=== PATIENT | male | born 1965 | race Caucasian/White ===

== ENCOUNTER 2024-09-11 05:40 | Emergency (ER) | payer OTHER ==
[2024-09-11] MEDS ORDERED: Ketorolac Tromethamine 30 MG (1 mL) VIAL ONE (06:00)
[2024-09-11] MEDS ORDERED: Ondansetron ODT 4 MG TAB ONE (06:12)
[2024-09-11 06:30] LABS: Bilirubin Neg (Negative); Blood, Urine 25 (Negative); Clarity Clear (Clear); Glucose, Urine (Dipstick) 50 mg/dL (Negative); Ketone, Urine Negative (Negative); Leukocyte Negative (Negative); Nitrite Negative (Negative); Protein, Urine (Dipstick) Negative (Neg-Trace); Urobilinogen Normal mg/dL (Less than 2)
[2024-09-11 06:49] LABS: Bacteria/HPF Rare-Few HPF (None Seen); CAUTI Indications for Culture Pelvic or flank pain; Squamous Epithelial 0-3 HPF (0-3); WBC/HPF 0-3 HPF (0-3)
[2024-09-11 06:50] LABS: Urine Culture Reflex No No
== END 2024-09-11 07:58 | disposition home or self-care (01) ==
LOC: CSHERS 05:40
DX: N20.0 Calculus of kidney (principal); I10 Essential (primary) hypertension; E78.5 Hyperlipidemia, unspecified; Z79.899 Other long term (current) drug therapy
CPT/HCPCS: 74176; 81001; 96372; J1885; Q0162

== ENCOUNTER 2024-09-13 22:34 | Emergency (ER) | payer OTHER ==
[2024-09-13] MEDS ORDERED: Ketorolac Tromethamine 30 MG (1 mL) VIAL ONE (23:12)
== END 2024-09-14 00:10 | disposition home or self-care (01) ==
LOC: CSHERS 22:34
DX: N13.2 Hydronephrosis with renal and ureteral calculous obstruction (principal); E78.5 Hyperlipidemia, unspecified; I10 Essential (primary) hypertension; Z79.899 Other long term (current) drug therapy
CPT/HCPCS: 96372; 99283; J1885